=== PATIENT | female | born 1980 | race Hispanic/Latino ===

== ENCOUNTER 2020-10-04 12:14 | Outpatient (CLI) | payer MEDICAID | END 2020-10-04 12:15 | disposition home or self-care (01) | LOC: BICMAMMO 12:14 | PROVIDERS: ATTEND Family Medicine | DX: Z12.31 Encounter for screening mammogram for malignant neoplasm of breast (principal); N64.89 Other specified disorders of breast | CPT/HCPCS: 77067 ==

== ENCOUNTER 2020-10-18 08:37 | Outpatient (CLI) | payer MEDICAID | END 2020-10-18 08:38 | disposition home or self-care (01) | LOC: BICMAMMO 08:37 | PROVIDERS: ATTEND Family Medicine | DX: R92.2 Inconclusive mammogram (principal) | CPT/HCPCS: G0279 ==